=== PATIENT | male | born 1965 | race Caucasian/White ===

== ENCOUNTER 2022-03-10 12:42 | Emergency (ER) | payer SELFPAY ==
--- NOTE | 2022-03-10 13:12 | RAD REPORT ---
EXAM DESCRIPTION: CT - Ct Stroke Brain Wo Cont - 03/10/2022 1:06 pm CLINICAL HISTORY: Neuro deficit, acute, stroke suspected Headache, drowsiness, CVA symptomology COMPARISON: No comparisons TECHNIQUE: All CT scans are performed using dose optimization technique as appropriate and may inclu de automated exposure control or mA/KV adjustment according to patient size. FINDINGS: No intracranial hemorrhage, hydrocephalus or extra-axial fluid collection.No areas of brai n edema or evidence of midline shift. The paranasal sinuses and mastoids are clear. The calvarium is intact. IMPRESSION: No acute intracranial abnormality. The findings were discussed with Francis Martin in the ER on 03/10/2022 at 1:08 p.m. by telephone.
[2022-03-10] MEDS ORDERED: TENECTEPLASE 50 MG/10 ML VIAL IV ONE (13:15)
[2022-03-10 13:17] LABS: Hematocrit 39.2 % (39.6-49.0); Lymphocytes % 24.6 % (15.3-44.8); MPV 7.5 fL (7.6-11.3); RBC Red Blood Cell Count 4.12 M/uL (4.33-5.43)
[2022-03-10 13:21] LABS: Protime INR 0.95
--- NOTE | 2022-03-10 13:48 | RAD REPORT ---
EXAM DESCRIPTION: RAD - Chest Single View - 03/10/2022 1:33 pm CLINICAL HISTORY: weakness COMPARISON: None TECHNIQUE: AP portable chest image was obtained 03/10/2022 1:33 pm . FINDINGS: Lungs are clear. Heart and vasculature are normal. No measurable pleural effusion and no p neumothorax. No acute bony abnormality seen. No acute aortic findings suspected. IMPRESSION: No acute cardiopulmonary process.
[2022-03-10 13:58] LABS: Bilirubin Direct 0.2 mg/dL (0-0.2); Bilirubin Total 0.9 mg/dL (0.2-1.0); CKMB Creatine Kinase MB 2.8 ng/mL (1.0-3.6); Magnesium 1.7 mg/dL (1.8-2.4); Potassium 3.3 mmol/L (3.5-5.1); Protein, Total 7.4 g/dL (6.4-8.2)
--- NOTE | 2022-03-10 14:10 | RAD REPORT ---
EXAM DESCRIPTION: CT - Head angio - 03/10/2022 2:00 pm CLINICAL HISTORY: Neuro deficit, acute, stroke suspected Headache, drowsiness, CVA symptomology COMPARISON: Ct Stroke Brain Wo Cont dated 03/10/2022 TECHNIQUE: CT angiography of the head was performed with MIPs. All CT scans are performed using dose optimization technique as appropriate and may include automated exposure control or mA/KV adjustment according to patient size. FINDINGS: No evidence of aneurysm is detected. No flow-limiting stenosis or vascular malformation id entified. Antegrade flow is seen in the vertebral arteries. The vertebral arteries are codominant. The visualized dural venous sinuses are patent. IMPRESSION: No significant flow abnormality is detected.
--- NOTE | 2022-03-10 14:12 | RAD REPORT ---
EXAM DESCRIPTION: CT - Neck Angio - 03/10/2022 2:00 pm CLINICAL HISTORY: Neuro deficit, acute, stroke suspected Headache, drowsiness, CVA symptomology COMPARISON: No comparisons TECHNIQUE: CT angiography of the neck vessels was performed with MIPs. All CT scans are performed using dose optimization technique as appropriate and may include automated exposure control or mA/KV adjustment according to patient size. FINDINGS: A left aortic arch is identified with normal three vessel configuration of the great vesse ls. Mild hard plaque is seen in both common carotid arteries. There is a moderate to large mixed plaque present left carotid bulb. This results in an 80-90% stenos is based on NASCET criteria. Focal hard plaque is seen right carotid bulb. This results in less than 50% stenosis on the right. Normal flow is seen within both vertebral arteries. IMPRESSION: 80-90% stenosis of the left carotid bulb is present caused by mixed plaque.
--- NOTE | 2022-03-10 15:03 | ER ---
Nurse's Notes [facility] Name: Francis Nguyen Age: 56 yrs Sex: Male : 1965 Arrival Date: 03/10/2022 Time: 12:43 Bed 8 Private MD: Diagnosis: Cerebral infarction, unspecified Presentation: 03/10 13:01 Chief complaint: Patient states: Passed out a couple times at work 30 min [employer]. Slight ll1 facial droop, L arm drift. Code stroke called. Coronavirus screen: Client denies travel out of the [place] in the last 14 days. At this time, the client does not indicate any symptoms associated with coronavirus-19. Ebola Screen: Patient denies travel to an Ebola-affected area in the 21 days before illness onset. Initial Sepsis Screen: Does the patient meet any 2 criteria? No. Patient's initial sepsis screen is negative. Does the patient have a suspected source of infection? No. Patient's initial sepsis screen is negative. Risk Assessment: Do you want to hurt yourself or someone else? Patient reports no desire to harm self or others. Onset of symptoms was March 10, 2022. 13:01 Method Of Arrival: Wheelchair ll1 13:01 Acuity: DONNA 2 ll1 Triage Assessment: 13:04 General: Appears uncomfortable, Behavior is cooperative, appropriate for age. Pain: ll1 Denies pain. Neuro: Reports a syncopal episode weakness. Cardiovascular: No deficits noted. Respiratory: No deficits noted. Derm: No deficits noted. Historical: - Allergies: 13:03 No Known Allergies; ll1 - Home Meds: 13:03 None [Active]; ll1 - PMHx: 13:03 None; ll1 - PSHx: 13:03 Unable to Obtain; ll1 - Immunization history:: Adult Immunizations up to date. - Social history:: Smoking status: Patient reports use of chewing tobacco. Screenin:04 Abuse screen: Denies threats or abuse. Nutritional screening: No deficits noted. ll1 Tuberculosis screening: No symptoms or risk factors identified. Fall Risk Fall in past 12 months (25 points). Secondary diagnosis (15 points) syncope. IV access (20 points). Ambulatory Aid- Crutches/Cane/Walker (15 pts). Gait- Impaired (20 pts.). Total Leon Fall Scale indicates High Risk Score (45 or more points). Fall prevention measures have been instituted. Side Rails Up X 2 Placed Close to Nursing Station Frequent Obs/Assessments Occuring Family Present and informed to notify staff if the need to leave the bedside As available patient and family educated on Fall Prevention Program and Strategies. 13:15 The patient has not been NPO before screening. The patient is alert, able to follow ll1 commands. The patient does not exhibit slurred or garbled speech The patient is not exhibiting difficulty speaking. The patient does not exhibit difficulty understanding words. The patient is able to swallow own secretions with no drooling or need for suction. Patient tolerated one teaspoon of water. No drooling, immediate coughing, gurgling, or clearing of the throat was noted. The patient tolerated 90mL of water. No drooling, immediate coughing, gurgling, or clearing of the throat was noted. The patient passed the bedside swallow screening. Oral medications may be given as ordered. Contact Physician for further diet orders. Provider notified of bedside swallow screening results: Francis DE SANTIAGO. Assessment: 13:15 General: Appears in no apparent distress. Behavior is calm, cooperative, appropriate ll1 for age. Pain: Denies pain. Neuro: Reports a syncopal episode weakness. Cardiovascular: No deficits noted. Respiratory: No deficits noted. Musculoskeletal: Circulation, motion, and sensation intact. Capillary refill < 3 seconds. 14:00 Reassessment: No changes from previously documented assessment. back from CT. ll1 15:00 Reassessment: No changes from previously documented assessment. Patient and/or family ll1 updated on plan of care and expected duration. Pain level reassessed. Patient is alert, oriented x 3, equal unlabored respirations, skin warm/dry/pink. 16:00 Reassessment: No changes from previously documented assessment. Patient and/or family ll1 updated on plan of care and expected duration. Pain level reassessed. Patient is alert, oriented x 3, equal unlabored respirations, skin warm/dry/pink. 16:39 Reassessment: No changes from previously documented assessment. Patient and/or family ll1 updated on plan of care and expected duration. Pain level reassessed. Patient is alert, oriented x 3, equal unlabored respirations, skin warm/dry/pink. Vital Signs: 13:01 BP 176 / 93; Pulse 83; Resp 17; Temp 98.5; Pulse Ox 99% on R/A; ll1 13:12 Weight 84 kg; ll1 13:18 BP 155 / 94; Pulse 78; Resp 16; Pulse Ox 100% ; ll1 13:30 BP 168 / 88; Pulse 72; Resp 16; Pulse Ox 99% on R/A; ll1 13:45 BP 160 / 90; Pulse 64; Resp 16; Pulse Ox 100% on R/A; ll1 14:15 BP 161 / 90; Pulse 84; Resp 16; Pulse Ox 99% ; ll1 14:30 BP 169 / 94; Pulse 72; Resp 17; Pulse Ox 100% ; ll1 14:45 BP 184 / 96; Pulse 70; Resp 16; Pulse Ox 100% on R/A; ll1 15:00 BP 180 / 96; Pulse 67; Resp 16; Pulse Ox 100% ; ll1 15:15 BP 176 / 90; Pulse 63; Resp 16; Pulse Ox 100% on R/A; ll1 15:30 BP 135 / 82; Pulse 66; Resp 16; Temp 98.1; Pulse Ox 99% ; ll1 16:00 BP 165 / 94; Pulse 66; Resp 16; Pulse Ox 99% ; ll1 16:30 BP 165 / 81; Pulse 66; Resp 16; Pulse Ox 99% ; ll1 NIH Stroke Scale Scores: 12:55 NIHSS Score: 6 [facility] 13:15 NIHSS Score: 2 ll1 13:30 NIHSS Score: 2 ll1 13:45 NIHSS Score: 2 ll1 14:00 NIHSS Score: 2 ll1 14:15 NIHSS Score: 1 ll1 14:30 NIHSS Score: 1 ll1 14:45 NIHSS Score: 1 ll1 15:00 NIHSS Score: 1 ll1 15:15 NIHSS Score: 1 ll1 15:30 NIHSS Score: 1 ll1 16:00 NIHSS Score: 1 ll1 16:30 NIHSS Score: 1 ll1 ED Course: 12:43 Patient arrived in ED. mr 12:50 Francis Martin PA is PHCP. jmm 12:50 Girish Begum MD is Attending Physician. jmm 12:53 Yael Duran RN is Primary Nurse. ll1 13:01 Inserted saline lock: 18 gauge in right antecubital area, using aseptic technique. ll1 Blood collected. 13:03 Triage completed. 1 13:04 Arm band placed on Patient placed in an exam room, on a stretcher. ll1 13:05 Patient has correct armband on for positive identification. Bed in low position. Call ll1 light in reach. Side rails up X2. Client placed on continuous cardiac and pulse oximetry monitoring. NIBP monitoring applied. 13:07 CT Stroke Brain w/o Contrast In Process Unspecified. EDMS 13:35 Stroke CXR 1 View In Process Unspecified. EDMS 14:02 CT Head Angio In Process Unspecified. EDMS 14:02 CT Neck Angio In Process Unspecified. EDMS 14:40 initiated transfer to [facility]. bd 15:40 pt accepted in transfer to [facility] by Dr Mccloud,admin approval given by cezar Humphries. 15:58 UDS Sent. 5 16:13 Warm blanket given. environmental monitoring technician on. Pulse ox on. NIBP on. 5 16:29 No provider procedures requiring assistance completed. Patient transferred, IV remains ll1 in place. Administered Medications: 13:21 Drug: TNK FOR STROKE - Tenecteplase 0.25 mg/kg {Co-Signature: 1 (Yael hernández RN).} Route: IV; Rate: per protocol; Site: right antecubital; 16:00 Follow up: Response: No adverse reaction; IV Status: Completed infusion; IV Intake: 9ml [facility] 14:16 Drug: NS 0.9% 1000 ml Route: IV; Rate: 1 bolus; Site: right antecubital; [facility] 15:06 Follow up: Response: No adverse reaction; IV Status: Completed infusion; IV Intake: ll1 1000ml 15:05 Drug: foLIC Acid 1 mg Route: IVPB; Site: right antecubital; [facility] 15:34 Follow up: Response: No adverse reaction; IV Status: Completed infusion; IV Intake: ll1 0.2ml 15:45 Not Given (Other Intervention Used): Alteplase (Bolus for Stroke) - Activase 0.09 mg/kg jl7 IV Thrombolytics once over 1 mins; Max Bolus dose 9 mg. Medication: 15:11 VIS not applicable for this client. 1 Intake: 15:06 IV: 1000ml; Total: 1000ml. ll1 15:34 IV: 0ml; Total: 1000ml. ll1 16:00 IV: 9ml; Total: 1009ml. jl7 Outcome: 15:03 ER care complete, transfer ordered by . [facility] 16:29 Transferred by ground EMS Transfer form completed. Note: [facility]. Report given ll1 to Maggie by HARDEEP Waterman. 16:29 Condition: stable 16:29 Instructed on the need for transfer. 16:45 Condition: Out of ED with EMS ll1 16:57 Patient left the ED. ll1 NIH Stroke Scale - NIH Stroke Score Date: 03/10/2022 Time: 12:55 Total Score = 6 1a. Level of Consciousness (LOC) - 0(Alert) 1b. Level of Consciousness (LOC) (Month \T\ Age) - 0(Both) 1c. LOC Commands (Open \T\ Closes Eyes/Honey Producer) - 0(Both) 2. Best Gaze (Lateral Gaze Paresis) - 0(Normal) 3. Visual Field Loss - 0(No visual loss) 4. Facial Palsy - 1(Minor Paralysis) 5a. Left Arm: Motor (10-second hold) - 2(Drift, some effort against gravity) 5b. Right Arm: Motor (10-second hold) - 0(No drift) 6a. Left Leg: Motor (5-second hold - always test supine) - 2(Drift, some effort against gravity) 6b. Right Leg: Motor (5-second hold - always test supine) - 0(No drift) 7. Limb Ataxia (finger/nose \T\ heel/hunt - test with eyes open) - 0(Absent) 8. Sensory Loss (pinprick arms/legs/face) - 0(Normal) 9. Best Language: Aphasia (description/naming/reading) - 0(No aphasia) 10. Dysarthria (speech clarity - read or repeat words) - 1(Mild to Moderate) 11. Extinction and Inattention (visual/tactile/auditory/spatial/personal) - 0(No abnormality) Initials: jodi NIH Stroke Scale - NIH Stroke Score Date: 03/10/2022 Time: 13:15 Total Score = 2 1a. Level of Consciousness (LOC) - 0(Alert) 1b. Level of Consciousness (LOC) (Month \T\ Age) - 0(Both) 1c. LOC Commands (Open \T\ Closes Eyes/Honey Producer) - 0(Both) 2. Best Gaze (Lateral Gaze Paresis) - 0(Normal) 3. Visual Field Loss - 0(No visual loss) 4. Facial Palsy - 1(Minor Paralysis) 5a. Left Arm: Motor (10-second hold) - 1(Drift) 5b. Right Arm: Motor (10-second hold) - 0(No drift) 6a. Left Leg: Motor (5-second hold - always test supine) - 0(No drift) 6b. Right Leg: Motor (5-second hold - always test supine) - 0(No drift) 7. Limb Ataxia (finger/nose \T\ heel/hunt - test with eyes open) - 0(Absent) 8. Sensory Loss (pinprick arms/legs/face) - 0(Normal) 9. Best Language: Aphasia (description/naming/reading) - 0(No aphasia) 10. Dysarthria (speech clarity - read or repeat words) - 0(Normal) 11. Extinction and Inattention (visual/tactile/auditory/spatial/personal) - 0(No abnormality) Initials: ll1 NIH Stroke Scale - NIH Stroke Score Date: 03/10/2022 Time: 13:30 Total Score = 2 1a. Level of Consciousness (LOC) - 0(Alert) 1b. Level of Consciousness (LOC) (Month \T\ Age) - 0(Both) 1c. LOC Commands (Open \T\ Closes Eyes/Honey Producer) - 0(Both) 2. Best Gaze (Lateral Gaze Paresis) - 0(Normal) 3. Visual Field Loss - 0(No visual loss) 4. Facial Palsy - 1(Minor Paralysis) 5a. Left Arm: Motor (10-second hold) - 1(Drift) 5b. Right Arm: Motor (10-second hold) - 0(No drift) 6a. Left Leg: Motor (5-second hold - always test supine) - 0(No drift) 6b. Right Leg: Motor (5-second hold - always test supine) - 0(No drift) 7. Limb Ataxia (finger/nose \T\ heel/hunt - test with eyes open) - 0(Absent) 8. Sensory Loss (pinprick arms/legs/face) - 0(Normal) 9. Best Language: Aphasia (description/naming/reading) - 0(No aphasia) 10. Dysarthria (speech clarity - read or repeat words) - 0(Normal) 11. Extinction and Inattention (visual/tactile/auditory/spatial/personal) - 0(No abnormality) Initials: ll1 NIH Stroke Scale - NIH Stroke Score Date: 03/10/2022 Time: 13:45 Total Score = 2 1a. Level of Consciousness (LOC) - 0(Alert) 1b. Level of Consciousness (LOC) (Month \T\ Age) - 0(Both) 1c. LOC Commands (Open \T\ Closes Eyes/Honey Producer) - 0(Both) 2. Best Gaze (Lateral Gaze Paresis) - 0(Normal) 3. Visual Field Loss - 0(No visual loss) 4. Facial Palsy - 1(Minor Paralysis) 5a. Left Arm: Motor (10-second hold) - 1(Drift) 5b. Right Arm: Motor (10-second hold) - 0(No drift) 6a. Left Leg: Motor (5-second hold - always test supine) - 0(No drift) 6b. Right Leg: Motor (5-second hold - always test supine) - 0(No drift) 7. Limb Ataxia (finger/nose \T\ heel/hunt - test with eyes open) - 0(Absent) 8. Sensory Loss (pinprick arms/legs/face) - 0(Normal) 9. Best Language: Aphasia (description/naming/reading) - 0(No aphasia) 10. Dysarthria (speech clarity - read or repeat words) - 0(Normal) 11. Extinction and Inattention (visual/tactile/auditory/spatial/personal) - 0(No abnormality) Initials: ll1 NIH Stroke Scale - NIH Stroke Score Date: 03/10/2022 Time: 14:00 Total Score = 2 1a. Level of Consciousness (LOC) - 0(Alert) 1b. Level of Consciousness (LOC) (Month \T\ Age) - 0(Both) 1c. LOC Commands (Open \T\ Closes Eyes/Honey Producer) - 0(Both) 2. Best Gaze (Lateral Gaze Paresis) - 0(Normal) 3. Visual Field Loss - 0(No visual loss) 4. Facial Palsy - 1(Minor Paralysis) 5a. Left Arm: Motor (10-second hold) - 1(Drift) 5b. Right Arm: Motor (10-second hold) - 0(No drift) 6a. Left Leg: Motor (5-second hold - always test supine) - 0(No drift) 6b. Right Leg: Motor (5-second hold - always test supine) - 0(No drift) 7. Limb Ataxia (finger/nose \T\ heel/hunt - test with eyes open) - 0(Absent) 8. Sensory Loss (pinprick arms/legs/face) - 0(Normal) 9. Best Language: Aphasia (description/naming/reading) - 0(No aphasia) 10. Dysarthria (speech clarity - read or repeat words) - 0(Normal) 11. Extinction and Inattention (visual/tactile/auditory/spatial/personal) - 0(No abnormality) Initials: [facility] NIH Stroke Scale - NIH Stroke Score Date: 03/10/2022 Time: 14:15 Total Score = 1 1a. Level of Consciousness (LOC) - 0(Alert) 1b. Level of Consciousness (LOC) (Month \T\ Age) - 0(Both) 1c. LOC Commands (Open \T\ Closes Eyes/Honey Producer) - 0(Both) 2. Best Gaze (Lateral Gaze Paresis) - 0(Normal) 3. Visual Field Loss - 0(No visual loss) 4. Facial Palsy - 1(Minor Paralysis) 5a. Left Arm: Motor (10-second hold) - 0(No drift) 5b. Right Arm: Motor (10-second hold) - 0(No drift) 6a. Left Leg: Motor (5-second hold - always test supine) - 0(No drift) 6b. Right Leg: Motor (5-second hold - always test supine) - 0(No drift) 7. Limb Ataxia (finger/nose \T\ heel/hunt - test with eyes open) - 0(Absent) 8. Sensory Loss (pinprick arms/legs/face) - 0(Normal) 9. Best Language: Aphasia (description/naming/reading) - 0(No aphasia) 10. Dysarthria (speech clarity - read or repeat words) - 0(Normal) 11. Extinction and Inattention (visual/tactile/auditory/spatial/personal) - 0(No abnormality) Initials: [facility] NIH Stroke Scale - NIH Stroke Score Date: 03/10/2022 Time: 14:30 Total Score = 1 1a. Level of Consciousness (LOC) - 0(Alert) 1b. Level of Consciousness (LOC) (Month \T\ Age) - 0(Both) 1c. LOC Commands (Open \T\ Closes Eyes/Honey Producer) - 0(Both) 2. Best Gaze (Lateral Gaze Paresis) - 0(Normal) 3. Visual Field Loss - 0(No visual loss) 4. Facial Palsy - 1(Minor Paralysis) 5a. Left Arm: Motor (10-second hold) - 0(No drift) 5b. Right Arm: Motor (10-second hold) - 0(No drift) 6a. Left Leg: Motor (5-second hold - always test supine) - 0(No drift) 6b. Right Leg: Motor (5-second hold - always test supine) - 0(No drift) 7. Limb Ataxia (finger/nose \T\ heel/hunt - test with eyes open) - 0(Absent) 8. Sensory Loss (pinprick arms/legs/face) - 0(Normal) 9. Best Language: Aphasia (description/naming/reading) - 0(No aphasia) 10. Dysarthria (speech clarity - read or repeat words) - 0(Normal) 11. Extinction and Inattention (visual/tactile/auditory/spatial/personal) - 0(No abnormality) Initials: ll1 NIH Stroke Scale - NIH Stroke Score Date: 03/10/2022 Time: 14:45 Total Score = 1 1a. Level of Consciousness (LOC) - 0(Alert) 1b. Level of Consciousness (LOC) (Month \T\ Age) - 0(Both) 1c. LOC Commands (Open \T\ Closes Eyes/Honey Producer) - 0(Both) 2. Best Gaze (Lateral Gaze Paresis) - 0(Normal) 3. Visual Field Loss - 0(No visual loss) 4. Facial Palsy - 1(Minor Paralysis) 5a. Left Arm: Motor (10-second hold) - 0(No drift) 5b. Right Arm: Motor (10-second hold) - 0(No drift) 6a. Left Leg: Motor (5-second hold - always test supine) - 0(No drift) 6b. Right Leg: Motor (5-second hold - always test supine) - 0(No drift) 7. Limb Ataxia (finger/nose \T\ heel/hunt - test with eyes open) - 0(Absent) 8. Sensory Loss (pinprick arms/legs/face) - 0(Normal) 9. Best Language: Aphasia (description/naming/reading) - 0(No aphasia) 10. Dysarthria (speech clarity - read or repeat words) - 0(Normal) 11. Extinction and Inattention (visual/tactile/auditory/spatial/personal) - 0(No abnormality) Initials: ll1 NIH Stroke Scale - NIH Stroke Score Date: 03/10/2022 Time: 15:00 Total Score = 1 1a. Level of Consciousness (LOC) - 0(Alert) 1b. Level of Consciousness (LOC) (Month \T\ Age) - 0(Both) 1c. LOC Commands (Open \T\ Closes Eyes/Honey Producer) - 0(Both) 2. Best Gaze (Lateral Gaze Paresis) - 0(Normal) 3. Visual Field Loss - 0(No visual loss) 4. Facial Palsy - 1(Minor Paralysis) 5a. Left Arm: Motor (10-second hold) - 0(No drift) 5b. Right Arm: Motor (10-second hold) - 0(No drift) 6a. Left Leg: Motor (5-second hold - always test supine) - 0(No drift) 6b. Right Leg: Motor (5-second hold - always test supine) - 0(No drift) 7. Limb Ataxia (finger/nose \T\ heel/hunt - test with eyes open) - 0(Absent) 8. Sensory Loss (pinprick arms/legs/face) - 0(Normal) 9. Best Language: Aphasia (description/naming/reading) - 0(No aphasia) 10. Dysarthria (speech clarity - read or repeat words) - 0(Normal) 11. Extinction and Inattention (visual/tactile/auditory/spatial/personal) - 0(No abnormality) Initials: 1 NIH Stroke Scale - NIH Stroke Score Date: 03/10/2022 Time: 15:15 Total Score = 1 1a. Level of Consciousness (LOC) - 0(Alert) 1b. Level of Consciousness (LOC) (Month \T\ Age) - 0(Both) 1c. LOC Commands (Open \T\ Closes Eyes/Honey Producer) - 0(Both) 2. Best Gaze (Lateral Gaze Paresis) - 0(Normal) 3. Visual Field Loss - 0(No visual loss) 4. Facial Palsy - 1(Minor Paralysis) 5a. Left Arm: Motor (10-second hold) - 0(No drift) 5b. Right Arm: Motor (10-second hold) - 0(No drift) 6a. Left Leg: Motor (5-second hold - always test supine) - 0(No drift) 6b. Right Leg: Motor (5-second hold - always test supine) - 0(No drift) 7. Limb Ataxia (finger/nose \T\ heel/hunt - test with eyes open) - 0(Absent) 8. Sensory Loss (pinprick arms/legs/face) - 0(Normal) 9. Best Language: Aphasia (description/naming/reading) - 0(No aphasia) 10. Dysarthria (speech clarity - read or repeat words) - 0(Normal) 11. Extinction and Inattention (visual/tactile/auditory/spatial/personal) - 0(No abnormality) Initials: ll1 NIH Stroke Scale - NIH Stroke Score Date: 03/10/2022 Time: 15:30 Total Score = 1 1a. Level of Consciousness (LOC) - 0(Alert) 1b. Level of Consciousness (LOC) (Month \T\ Age) - 0(Both) 1c. LOC Commands (Open \T\ Closes Eyes/Honey Producer) - 0(Both) 2. Best Gaze (Lateral Gaze Paresis) - 0(Normal) 3. Visual Field Loss - 0(No visual loss) 4. Facial Palsy - 1(Minor Paralysis) 5a. Left Arm: Motor (10-second hold) - 0(No drift) 5b. Right Arm: Motor (10-second hold) - 0(No drift) 6a. Left Leg: Motor (5-second hold - always test supine) - 0(No drift) 6b. Right Leg: Motor (5-second hold - always test supine) - 0(No drift) 7. Limb Ataxia (finger/nose \T\ heel/hunt - test with eyes open) - 0(Absent) 8. Sensory Loss (pinprick arms/legs/face) - 0(Normal) 9. Best Language: Aphasia (description/naming/reading) - 0(No aphasia) 10. Dysarthria (speech clarity - read or repeat words) - 0(Normal) 11. Extinction and Inattention (visual/tactile/auditory/spatial/personal) - 0(No abnormality) Initials: ll1 NIH Stroke Scale - NIH Stroke Score Date: 03/10/2022 Time: 16:00 Total Score = 1 1a. Level of Consciousness (LOC) - 0(Alert) 1b. Level of Consciousness (LOC) (Month \T\ Age) - 0(Both) 1c. LOC Commands (Open \T\ Closes Eyes/Honey Producer) - 0(Both) 2. Best Gaze (Lateral Gaze Paresis) - 0(Normal) 3. Visual Field Loss - 0(No visual loss) 4. Facial Palsy - 1(Minor Paralysis) 5a. Left Arm: Motor (10-second hold) - 0(No drift) 5b. Right Arm: Motor (10-second hold) - 0(No drift) 6a. Left Leg: Motor (5-second hold - always test supine) - 0(No drift) 6b. Right Leg: Motor (5-second hold - always test supine) - 0(No drift) 7. Limb Ataxia (finger/nose \T\ heel/hunt - test with eyes open) - 0(Absent) 8. Sensory Loss (pinprick arms/legs/face) - 0(Normal) 9. Best Language: Aphasia (description/naming/reading) - 0(No aphasia) 10. Dysarthria (speech clarity - read or repeat words) - 0(Normal) 11. Extinction and Inattention (visual/tactile/auditory/spatial/personal) - 0(No abnormality) Initials: ll1 NIH Stroke Scale - NIH Stroke Score Date: 03/10/2022 Time: 16:30 Total Score = 1 1a. Level of Consciousness (LOC) - 0(Alert) 1b. Level of Consciousness (LOC) (Month \T\ Age) - 0(Both) 1c. LOC Commands (Open \T\ Closes Eyes/Honey Producer) - 0(Both) 2. Best Gaze (Lateral Gaze Paresis) - 0(Normal) 3. Visual Field Loss - 0(No visual loss) 4. Facial Palsy - 1(Minor Paralysis) 5a. Left Arm: Motor (10-second hold) - 0(No drift) 5b. Right Arm: Motor (10-second hold) - 0(No drift) 6a. Left Leg: Motor (5-second hold - always test supine) - 0(No drift) 6b. Right Leg: Motor (5-second hold - always test supine) - 0(No drift) 7. Limb Ataxia (finger/nose \T\ heel/hunt - test with eyes open) - 0(Absent) 8. Sensory Loss (pinprick arms/legs/face) - 0(Normal) 9. Best Language: Aphasia (description/naming/reading) - 0(No aphasia) 10. Dysarthria (speech clarity - read or repeat words) - 0(Normal) 11. Extinction and Inattention (visual/tactile/auditory/spatial/personal) - 0(No abnormality) Initials: [facility] Signatures: Dispatcher [employer] EDMS Alena Zeng Joel, PA PA kj Kin, Ely Watkins, Najma 5 Guevara Eagle, HARDEEP RN jl7 Yael Duran RN RN ll Yael Duran RN [facility] Corrections: (The following items were deleted from the chart) 14:00 13:30 The patient has not been NPO before screening. The patient is alert, able [facility] to follow commands. The patient does not exhibit slurred or garbled speech The patient is not exhibiting difficulty speaking. The patient does not exhibit difficulty understanding words. The patient is able to swallow own secretions with no drooling or need for suction. Patient tolerated one teaspoon of water. No drooling, immediate coughing, gurgling, or clearing of the throat was noted. The patient tolerated 90mL of water. No drooling, immediate coughing, gurgling, or clearing of the throat was noted. The patient passed the bedside swallow screening. Oral medications may be given as ordered. Contact Physician for further diet orders. Provider notified of bedside swallow screening results: Francis DE SANTIAGO [facility] 15:40 15:30 BP 135 / 82; Pulse 66bpm; Pulse Ox 99%; [place] [id number] 15:45 13:21 Alteplase (Bolus for Stroke) - Activase 0.09 mg/kg IV Thrombolytics over jl7 1 mins [facility] 15:45 15:06 Response: No adverse reaction [facility]
--- NOTE | 2022-03-10 15:03 | EDPHYS ---
Physician Documentation [facility] Name: Francis Nguyen Age: 56 yrs Sex: Male : 1965 Arrival Date: 03/10/2022 Time: 12:43 Bed 8 Private MD: ED Physician Girish Begum HPI: 03/10 12:50 This 56 yrs old Male presents to ER via Wheelchair with complaints of Heat Exposure, jmm Passed Out Prior To Arrival, Dizziness, Facial Droop. 12:50 The patient's problem is reported as a facial droop, on left, syncope, syncope. Onset: jm The symptoms/episode began/occurred acutely, .5 hour(s) ago. Duration: This was a single incident. 12:50 The symptoms are alleviated by nothing. The symptoms are aggravated by nothing. This is jmm a 56-year-old male with no chronic medical conditions and presents emerged department with complaints of a syncopal episode. Patient also developed left-sided weakness. Patient denies chest pain, vomiting, shortness of breath. . Historical: - Allergies: 13:03 No Known Allergies; ll1 - Home Meds: 13:03 None [Active]; ll1 - PMHx: 13:03 None; ll1 - PSHx: 13:03 Unable to Obtain; ll1 - Immunization history:: Adult Immunizations up to date. - Social history:: Smoking status: Patient reports use of chewing tobacco. ROS: 12:50 Constitutional: Negative for fever, chills, and weight loss, Cardiovascular: Negative [facility] for chest pain, palpitations, and edema, Respiratory: Negative for shortness of breath, cough, wheezing, and pleuritic chest pain. 12:50 Neuro: Positive for syncope, weakness. 12:50 All other systems are negative. Exam: 13:32 Radiologist reports: negative jm 13:32 Constitutional: This is a well developed, well nourished patient who is awake, alert, and in no acute distress. Vital Signs: 13:01 BP 176 / 93; Pulse 83; Resp 17; Temp 98.5; Pulse Ox 99% on R/A; ll1 13:12 Weight 84 kg; ll1 13:18 BP 155 / 94; Pulse 78; Resp 16; Pulse Ox 100% ; ll1 13:30 BP 168 / 88; Pulse 72; Resp 16; Pulse Ox 99% on R/A; ll1 13:45 BP 160 / 90; Pulse 64; Resp 16; Pulse Ox 100% on R/A; ll1 14:15 BP 161 / 90; Pulse 84; Resp 16; Pulse Ox 99% ; ll1 14:30 BP 169 / 94; Pulse 72; Resp 17; Pulse Ox 100% ; ll1 14:45 BP 184 / 96; Pulse 70; Resp 16; Pulse Ox 100% on R/A; ll1 15:00 BP 180 / 96; Pulse 67; Resp 16; Pulse Ox 100% ; ll1 15:15 BP 176 / 90; Pulse 63; Resp 16; Pulse Ox 100% on R/A; ll1 15:30 BP 135 / 82; Pulse 66; Resp 16; Temp 98.1; Pulse Ox 99% ; ll1 16:00 BP 165 / 94; Pulse 66; Resp 16; Pulse Ox 99% ; ll1 16:30 BP 165 / 81; Pulse 66; Resp 16; Pulse Ox 99% ; ll1 NIH Stroke Scale Scores: 12:55 NIHSS Score: 6 [facility] 13:15 NIHSS Score: 2 ll1 13:30 NIHSS Score: 2 ll1 13:45 NIHSS Score: 2 ll1 14:00 NIHSS Score: 2 ll1 14:15 NIHSS Score: 1 ll1 14:30 NIHSS Score: 1 ll1 14:45 NIHSS Score: 1 ll1 15:00 NIHSS Score: 1 ll1 15:15 NIHSS Score: 1 ll1 15:30 NIHSS Score: 1 ll1 16:00 NIHSS Score: 1 ll1 16:30 NIHSS Score: 1 ll1 MDM: 12:50 Patient medically screened. nivia 14:57 Data reviewed: vital signs, nurses notes. Counseling: I had a detailed discussion with [facility] the patient and/or guardian regarding: the historical points, exam findings, and any diagnostic results supporting the discharge/admit diagnosis, lab results, radiology results, the need to transfer to another facility. ED course: I discussed the patient's case with whom recommended administration of alteplase. Patient did improve from an NIH of 6 to 3. 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 I discussed the patient with Neurology at [facility] whom accepted the patient for transfer. . 03/10 13:02 Order name: Basic Metabolic Panel; Complete Time: 14:00 [facility] 03/10 13:02 Order name: CBC with Diff; Complete Time: 13:24 [facility] 03/10 13:02 Order name: CPK; Complete Time: 14:00 [facility] 03/10 13:02 Order name: Ckmb; Complete Time: 14:00 [facility] 03/10 13:02 Order name: Hepatic Function; Complete Time: 14:00 [facility] 03/10 13:02 Order name: Lipase; Complete Time: 14:00 [facility] 03/10 13:02 Order name: Magnesium; Complete Time: 14:00 [facility] 03/10 13:02 Order name: Protime (+inr); Complete Time: 13:22 [facility] 03/10 13:02 Order name: Ptt, Activated; Complete Time: 13:22 [facility] 03/10 13:02 Order name: UDS; Complete Time: 16:34 [facility] 03/10 13:02 Order name: CT Stroke Brain w/o Contrast; Complete Time: 13:14 [facility] 03/10 13:02 Order name: Stroke CXR 1 View; Complete Time: 13:50 [facility] 03/10 13:38 Order name: SARS-COV-2 RT PCR (Document "Date of Onset" if Symptomatic); Complete Time: [facility] 15:11 03/10 16:07 Order name: Urine Dipstick-Ancillary; Complete Time: 16:22 [facility] 03/10 13:02 Order name: EKG; Complete Time: 13:03 [facility] 03/10 13:02 Order name: Cardiac monitoring; Complete Time: 13:25 [facility] 03/10 13:02 Order name: EKG - Nurse/Tech; Complete Time: 13:25 [facility] 03/10 13:02 Order name: IV Saline Lock; Complete Time: 13:06 [facility] 03/10 13:02 Order name: Labs collected and sent; Complete Time: 13:06 [facility] 03/10 13:02 Order name: NPO; Complete Time: 13:25 [facility] 03/10 13:02 Order name: O2 Per Protocol; Complete Time: 13:05 [facility] 03/10 13:02 Order name: O2 Sat Monitoring; Complete Time: 13:05 [facility] 03/10 13:02 Order name: Stroke Swallow Screen; Complete Time: 15:06 [facility] 03/10 13:34 Order name: CT Head Angio; Complete Time: 14:11 [facility] 03/10 13:34 Order name: CT Neck Angio; Complete Time: 14:14 [facility] Administered Medications: 13:21 Drug: TNK FOR STROKE - Tenecteplase 0.25 mg/kg {Co-Signature: ll1 (Yael hernández RN).} Route: IV; Rate: per protocol; Site: right antecubital; 16:00 Follow up: Response: No adverse reaction; IV Status: Completed infusion; IV Intake: 9ml jl7 14:16 Drug: NS 0.9% 1000 ml Route: IV; Rate: 1 bolus; Site: right antecubital; ll1 15:06 Follow up: Response: No adverse reaction; IV Status: Completed infusion; IV Intake: ll1 1000ml 15:05 Drug: foLIC Acid 1 mg Route: IVPB; Site: right antecubital; [facility] 15:34 Follow up: Response: No adverse reaction; IV Status: Completed infusion; IV Intake: ll1 0.2ml 15:45 Not Given (Other Intervention Used): Alteplase (Bolus for Stroke) - Activase 0.09 mg/kg [facility] IV Thrombolytics once over 1 mins; Max Bolus dose 9 mg. Disposition Summary: 03/10/22 15:03 Transfer Ordered Transfer Location: [facility] Reason: Higher level of care [facility] Condition: Stable [facility] Problem: new [facility] Symptoms: are unchanged [facility] Accepting Physician: Neurology(03/10/22 16:57) ll1 Diagnosis - Cerebral infarction, unspecified [facility] Forms: - Medication Reconciliation Form [facility] - SBAR form [facility] NIH Stroke Scale - NIH Stroke Score Date: 03/10/2022 Time: 12:55 Total Score = 6 1a. Level of Consciousness (LOC) - 0(Alert) 1b. Level of Consciousness (LOC) (Month \\T\\ Age) - 0(Both) 1c. LOC Commands (Open \\T\\ Closes Eyes/Child Nutrition Director) - 0(Both) 2. Best Gaze (Lateral Gaze Paresis) - 0(Normal) 3. Visual Field Loss - 0(No visual loss) 4. Facial Palsy - 1(Minor Paralysis) 5a. Left Arm: Motor (10-second hold) - 2(Drift, some effort against gravity) 5b. Right Arm: Motor (10-second hold) - 0(No drift) 6a. Left Leg: Motor (5-second hold - always test supine) - 2(Drift, some effort against gravity) 6b. Right Leg: Motor (5-second hold - always test supine) - 0(No drift) 7. Limb Ataxia (finger/nose \\T\\ heel/hunt - test with eyes open) - 0(Absent) 8. Sensory Loss (pinprick arms/legs/face) - 0(Normal) 9. Best Language: Aphasia (description/naming/reading) - 0(No aphasia) 10. Dysarthria (speech clarity - read or repeat words) - 1(Mild to Moderate) 11. Extinction and Inattention (visual/tactile/auditory/spatial/personal) - 0(No abnormality) Initials: [facility] NIH Stroke Scale - NIH Stroke Score Date: 03/10/2022 Time: 13:15 Total Score = 2 1a. Level of Consciousness (LOC) - 0(Alert) 1b. Level of Consciousness (LOC) (Month \\T\\ Age) - 0(Both) 1c. LOC Commands (Open \\T\\ Closes Eyes/Child Nutrition Director) - 0(Both) 2. Best Gaze (Lateral Gaze Paresis) - 0(Normal) 3. Visual Field Loss - 0(No visual loss) 4. Facial Palsy - 1(Minor Paralysis) 5a. Left Arm: Motor (10-second hold) - 1(Drift) 5b. Right Arm: Motor (10-second hold) - 0(No drift) 6a. Left Leg: Motor (5-second hold - always test supine) - 0(No drift) 6b. Right Leg: Motor (5-second hold - always test supine) - 0(No drift) 7. Limb Ataxia (finger/nose \\T\\ heel/hunt - test with eyes open) - 0(Absent) 8. Sensory Loss (pinprick arms/legs/face) - 0(Normal) 9. Best Language: Aphasia (description/naming/reading) - 0(No aphasia) 10. Dysarthria (speech clarity - read or repeat words) - 0(Normal) 11. Extinction and Inattention (visual/tactile/auditory/spatial/personal) - 0(No abnormality) Initials: ll1 NIH Stroke Scale - NIH Stroke Score Date: 03/10/2022 Time: 13:30 Total Score = 2 1a. Level of Consciousness (LOC) - 0(Alert) 1b. Level of Consciousness (LOC) (Month \\T\\ Age) - 0(Both) 1c. LOC Commands (Open \\T\\ Closes Eyes/Child Nutrition Director) - 0(Both) 2. Best Gaze (Lateral Gaze Paresis) - 0(Normal) 3. Visual Field Loss - 0(No visual loss) 4. Facial Palsy - 1(Minor Paralysis) 5a. Left Arm: Motor (10-second hold) - 1(Drift) 5b. Right Arm: Motor (10-second hold) - 0(No drift) 6a. Left Leg: Motor (5-second hold - always test supine) - 0(No drift) 6b. Right Leg: Motor (5-second hold - always test supine) - 0(No drift) 7. Limb Ataxia (finger/nose \\T\\ heel/hunt - test with eyes open) - 0(Absent) 8. Sensory Loss (pinprick arms/legs/face) - 0(Normal) 9. Best Language: Aphasia (description/naming/reading) - 0(No aphasia) 10. Dysarthria (speech clarity - read or repeat words) - 0(Normal) 11. Extinction and Inattention (visual/tactile/auditory/spatial/personal) - 0(No abnormality) Initials: [facility] NIH Stroke Scale - NIH Stroke Score Date: 03/10/2022 Time: 13:45 Total Score = 2 1a. Level of Consciousness (LOC) - 0(Alert) 1b. Level of Consciousness (LOC) (Month \\T\\ Age) - 0(Both) 1c. LOC Commands (Open \\T\\ Closes Eyes/Child Nutrition Director) - 0(Both) 2. Best Gaze (Lateral Gaze Paresis) - 0(Normal) 3. Visual Field Loss - 0(No visual loss) 4. Facial Palsy - 1(Minor Paralysis) 5a. Left Arm: Motor (10-second hold) - 1(Drift) 5b. Right Arm: Motor (10-second hold) - 0(No drift) 6a. Left Leg: Motor (5-second hold - always test supine) - 0(No drift) 6b. Right Leg: Motor (5-second hold - always test supine) - 0(No drift) 7. Limb Ataxia (finger/nose \\T\\ heel/hunt - test with eyes open) - 0(Absent) 8. Sensory Loss (pinprick arms/legs/face) - 0(Normal) 9. Best Language: Aphasia (description/naming/reading) - 0(No aphasia) 10. Dysarthria (speech clarity - read or repeat words) - 0(Normal) 11. Extinction and Inattention (visual/tactile/auditory/spatial/personal) - 0(No abnormality) Initials: ll1 NIH Stroke Scale - NIH Stroke Score Date: 03/10/2022 Time: 14:00 Total Score = 2 1a. Level of Consciousness (LOC) - 0(Alert) 1b. Level of Consciousness (LOC) (Month \\T\\ Age) - 0(Both) 1c. LOC Commands (Open \\T\\ Closes Eyes/Child Nutrition Director) - 0(Both) 2. Best Gaze (Lateral Gaze Paresis) - 0(Normal) 3. Visual Field Loss - 0(No visual loss) 4. Facial Palsy - 1(Minor Paralysis) 5a. Left Arm: Motor (10-second hold) - 1(Drift) 5b. Right Arm: Motor (10-second hold) - 0(No drift) 6a. Left Leg: Motor (5-second hold - always test supine) - 0(No drift) 6b. Right Leg: Motor (5-second hold - always test supine) - 0(No drift) 7. Limb Ataxia (finger/nose \\T\\ heel/hunt - test with eyes open) - 0(Absent) 8. Sensory Loss (pinprick arms/legs/face) - 0(Normal) 9. Best Language: Aphasia (description/naming/reading) - 0(No aphasia) 10. Dysarthria (speech clarity - read or repeat words) - 0(Normal) 11. Extinction and Inattention (visual/tactile/auditory/spatial/personal) - 0(No abnormality) Initials: ll1 NIH Stroke Scale - NIH Stroke Score Date: 03/10/2022 Time: 14:15 Total Score = 1 1a. Level of Consciousness (LOC) - 0(Alert) 1b. Level of Consciousness (LOC) (Month \\T\\ Age) - 0(Both) 1c. LOC Commands (Open \\T\\ Closes Eyes/Child Nutrition Director) - 0(Both) 2. Best Gaze (Lateral Gaze Paresis) - 0(Normal) 3. Visual Field Loss - 0(No visual loss) 4. Facial Palsy - 1(Minor Paralysis) 5a. Left Arm: Motor (10-second hold) - 0(No drift) 5b. Right Arm: Motor (10-second hold) - 0(No drift) 6a. Left Leg: Motor (5-second hold - always test supine) - 0(No drift) 6b. Right Leg: Motor (5-second hold - always test supine) - 0(No drift) 7. Limb Ataxia (finger/nose \\T\\ heel/hunt - test with eyes open) - 0(Absent) 8. Sensory Loss (pinprick arms/legs/face) - 0(Normal) 9. Best Language: Aphasia (description/naming/reading) - 0(No aphasia) 10. Dysarthria (speech clarity - read or repeat words) - 0(Normal) 11. Extinction and Inattention (visual/tactile/auditory/spatial/personal) - 0(No abnormality) Initials: ll1 NIH Stroke Scale - NIH Stroke Score Date: 03/10/2022 Time: 14:30 Total Score = 1 1a. Level of Consciousness (LOC) - 0(Alert) 1b. Level of Consciousness (LOC) (Month \\T\\ Age) - 0(Both) 1c. LOC Commands (Open \\T\\ Closes Eyes/Child Nutrition Director) - 0(Both) 2. Best Gaze (Lateral Gaze Paresis) - 0(Normal) 3. Visual Field Loss - 0(No visual loss) 4. Facial Palsy - 1(Minor Paralysis) 5a. Left Arm: Motor (10-second hold) - 0(No drift) 5b. Right Arm: Motor (10-second hold) - 0(No drift) 6a. Left Leg: Motor (5-second hold - always test supine) - 0(No drift) 6b. Right Leg: Motor (5-second hold - always test supine) - 0(No drift) 7. Limb Ataxia (finger/nose \\T\\ heel/hunt - test with eyes open) - 0(Absent) 8. Sensory Loss (pinprick arms/legs/face) - 0(Normal) 9. Best Language: Aphasia (description/naming/reading) - 0(No aphasia) 10. Dysarthria (speech clarity - read or repeat words) - 0(Normal) 11. Extinction and Inattention (visual/tactile/auditory/spatial/personal) - 0(No abnormality) Initials: [facility] NIH Stroke Scale - NIH Stroke Score Date: 03/10/2022 Time: 14:45 Total Score = 1 1a. Level of Consciousness (LOC) - 0(Alert) 1b. Level of Consciousness (LOC) (Month \\T\\ Age) - 0(Both) 1c. LOC Commands (Open \\T\\ Closes Eyes/Child Nutrition Director) - 0(Both) 2. Best Gaze (Lateral Gaze Paresis) - 0(Normal) 3. Visual Field Loss - 0(No visual loss) 4. Facial Palsy - 1(Minor Paralysis) 5a. Left Arm: Motor (10-second hold) - 0(No drift) 5b. Right Arm: Motor (10-second hold) - 0(No drift) 6a. Left Leg: Motor (5-second hold - always test supine) - 0(No drift) 6b. Right Leg: Motor (5-second hold - always test supine) - 0(No drift) 7. Limb Ataxia (finger/nose \\T\\ heel/hunt - test with eyes open) - 0(Absent) 8. Sensory Loss (pinprick arms/legs/face) - 0(Normal) 9. Best Language: Aphasia (description/naming/reading) - 0(No aphasia) 10. Dysarthria (speech clarity - read or repeat words) - 0(Normal) 11. Extinction and Inattention (visual/tactile/auditory/spatial/personal) - 0(No abnormality) Initials: [facility] NIH Stroke Scale - NIH Stroke Score Date: 03/10/2022 Time: 15:00 Total Score = 1 1a. Level of Consciousness (LOC) - 0(Alert) 1b. Level of Consciousness (LOC) (Month \\T\\ Age) - 0(Both) 1c. LOC Commands (Open \\T\\ Closes Eyes/Child Nutrition Director) - 0(Both) 2. Best Gaze (Lateral Gaze Paresis) - 0(Normal) 3. Visual Field Loss - 0(No visual loss) 4. Facial Palsy - 1(Minor Paralysis) 5a. Left Arm: Motor (10-second hold) - 0(No drift) 5b. Right Arm: Motor (10-second hold) - 0(No drift) 6a. Left Leg: Motor (5-second hold - always test supine) - 0(No drift) 6b. Right Leg: Motor (5-second hold - always test supine) - 0(No drift) 7. Limb Ataxia (finger/nose \\T\\ heel/hunt - test with eyes open) - 0(Absent) 8. Sensory Loss (pinprick arms/legs/face) - 0(Normal) 9. Best Language: Aphasia (description/naming/reading) - 0(No aphasia) 10. Dysarthria (speech clarity - read or repeat words) - 0(Normal) 11. Extinction and Inattention (visual/tactile/auditory/spatial/personal) - 0(No abnormality) Initials: ll1 NIH Stroke Scale - NIH Stroke Score Date: 03/10/2022 Time: 15:15 Total Score = 1 1a. Level of Consciousness (LOC) - 0(Alert) 1b. Level of Consciousness (LOC) (Month \\T\\ Age) - 0(Both) 1c. LOC Commands (Open \\T\\ Closes Eyes/Child Nutrition Director) - 0(Both) 2. Best Gaze (Lateral Gaze Paresis) - 0(Normal) 3. Visual Field Loss - 0(No visual loss) 4. Facial Palsy - 1(Minor Paralysis) 5a. Left Arm: Motor (10-second hold) - 0(No drift) 5b. Right Arm: Motor (10-second hold) - 0(No drift) 6a. Left Leg: Motor (5-second hold - always test supine) - 0(No drift) 6b. Right Leg: Motor (5-second hold - always test supine) - 0(No drift) 7. Limb Ataxia (finger/nose \\T\\ heel/hunt - test with eyes open) - 0(Absent) 8. Sensory Loss (pinprick arms/legs/face) - 0(Normal) 9. Best Language: Aphasia (description/naming/reading) - 0(No aphasia) 10. Dysarthria (speech clarity - read or repeat words) - 0(Normal) 11. Extinction and Inattention (visual/tactile/auditory/spatial/personal) - 0(No abnormality) Initials: ll1 NIH Stroke Scale - NIH Stroke Score Date: 03/10/2022 Time: 15:30 Total Score = 1 1a. Level of Consciousness (LOC) - 0(Alert) 1b. Level of Consciousness (LOC) (Month \\T\\ Age) - 0(Both) 1c. LOC Commands (Open \\T\\ Closes Eyes/Child Nutrition Director) - 0(Both) 2. Best Gaze (Lateral Gaze Paresis) - 0(Normal) 3. Visual Field Loss - 0(No visual loss) 4. Facial Palsy - 1(Minor Paralysis) 5a. Left Arm: Motor (10-second hold) - 0(No drift) 5b. Right Arm: Motor (10-second hold) - 0(No drift) 6a. Left Leg: Motor (5-second hold - always test supine) - 0(No drift) 6b. Right Leg: Motor (5-second hold - always test supine) - 0(No drift) 7. Limb Ataxia (finger/nose \\T\\ heel/hunt - test with eyes open) - 0(Absent) 8. Sensory Loss (pinprick arms/legs/face) - 0(Normal) 9. Best Language: Aphasia (description/naming/reading) - 0(No aphasia) 10. Dysarthria (speech clarity - read or repeat words) - 0(Normal) 11. Extinction and Inattention (visual/tactile/auditory/spatial/personal) - 0(No abnormality) Initials: ll1 NIH Stroke Scale - NIH Stroke Score Date: 03/10/2022 Time: 16:00 Total Score = 1 1a. Level of Consciousness (LOC) - 0(Alert) 1b. Level of Consciousness (LOC) (Month \\T\\ Age) - 0(Both) 1c. LOC Commands (Open \\T\\ Closes Eyes/Child Nutrition Director) - 0(Both) 2. Best Gaze (Lateral Gaze Paresis) - 0(Normal) 3. Visual Field Loss - 0(No visual loss) 4. Facial Palsy - 1(Minor Paralysis) 5a. Left Arm: Motor (10-second hold) - 0(No drift) 5b. Right Arm: Motor (10-second hold) - 0(No drift) 6a. Left Leg: Motor (5-second hold - always test supine) - 0(No drift) 6b. Right Leg: Motor (5-second hold - always test supine) - 0(No drift) 7. Limb Ataxia (finger/nose \\T\\ heel/hunt - test with eyes open) - 0(Absent) 8. Sensory Loss (pinprick arms/legs/face) - 0(Normal) 9. Best Language: Aphasia (description/naming/reading) - 0(No aphasia) 10. Dysarthria (speech clarity - read or repeat words) - 0(Normal) 11. Extinction and Inattention (visual/tactile/auditory/spatial/personal) - 0(No abnormality) Initials: ll1 NIH Stroke Scale - NIH Stroke Score Date: 03/10/2022 Time: 16:30 Total Score = 1 1a. Level of Consciousness (LOC) - 0(Alert) 1b. Level of Consciousness (LOC) (Month \\T\\ Age) - 0(Both) 1c. LOC Commands (Open \\T\\ Closes Eyes/Child Nutrition Director) - 0(Both) 2. Best Gaze (Lateral Gaze Paresis) - 0(Normal) 3. Visual Field Loss - 0(No visual loss) 4. Facial Palsy - 1(Minor Paralysis) 5a. Left Arm: Motor (10-second hold) - 0(No drift) 5b. Right Arm: Motor (10-second hold) - 0(No drift) 6a. Left Leg: Motor (5-second hold - always test supine) - 0(No drift) 6b. Right Leg: Motor (5-second hold - always test supine) - 0(No drift) 7. Limb Ataxia (finger/nose \\T\\ heel/hunt - test with eyes open) - 0(Absent) 8. Sensory Loss (pinprick arms/legs/face) - 0(Normal) 9. Best Language: Aphasia (description/naming/reading) - 0(No aphasia) 10. Dysarthria (speech clarity - read or repeat words) - 0(Normal) 11. Extinction and Inattention (visual/tactile/auditory/spatial/personal) - 0(No abnormality) Initials: ll1 Signatures: Dispatcher [employer] EDMS Girish Begum MD MD cha Mickail, Joel, PA PA jmm Leal, Jahala RN RN jl7 Yael Duran RN RN ll1 Yael Duran RN ll1 Corrections: (The following items were deleted from the chart) 13:25 13:02 Accucheck ordered. jodi 1 14:54 14:35 NIHSS Score: 6 [facility] 14:57 14:34 The symptoms are alleviated by nothing. The symptoms are aggravated by [facility] nothing. [facility] 14:57 14:52 Constitutional: Negative for fever, chills, and weight loss, [facility] Cardiovascular: Negative for chest pain, palpitations, and edema, Respiratory: Negative for shortness of breath, cough, wheezing, and pleuritic chest pain, jodi 14 14:52 All other systems are negative, jdoi zapata 14 14:52 Neuro: Positive for syncope, weakness, jodi zapata 16: 15:03 Neurology [facility] ll1
[2022-03-10] MEDS ORDERED: FOLIC ACID 5 MG/ML VIAL ONE (15:04)
[2022-03-10 16:07] LABS: Urine Blood Trace-intact (Negative); Urine Glucose Negative (Negative); Urine Protein Trace (Negative); Urine Specific Gravity >=1.030 (1.005-1.030); Urine pH 5.5 (5.0-7.0)
[2022-03-10 16:27] LABS: Barbiturates NEGATIVE (NEGATIVE); Benzodiazepines NEGATIVE (NEGATIVE); Cocaine NEGATIVE (NEGATIVE); METHAMPHETAM NEGATIVE (NEGATIVE); Methadone NEGATIVE (NEGATIVE); Opiates NEGATIVE (NEGATIVE); Phencyclidine NEGATIVE (NEGATIVE); THC Cannibis NEGATIVE (NEGATIVE)
[2022-03-10 17:36] VITALS: TEMP 98.1; O2SAT 99
[2022-03-10 17:40] VITALS: BP 165/81
--- NOTE | 2022-03-12 07:45 | EKG ---
Test Date: 2022-03-10 Test Time: 13:46:14 Nuclear Equipment Design Engineer: LESA MEASUREMENT RESULTS: Intervals: Rate: 65 CA: 188 QRSD: 106 QT: 394 QTc: 409 [place]: P: 80 CA: 188 QRS: 84 T: 70 INTERPRETIVE STATEMENTS: Normal sinus rhythm Normal ECG No previous ECG available for comparison Electronically Signed On 03-12-22 07:37:51 CDT by Patrick Torres
== END 2022-03-10 16:57 | disposition short-term general hospital (02) ==
LOC: ER 12:42
DX: I63.9 Cerebral infarction, unspecified (principal); R29.706 NIHSS score 6; F17.220 Nicotine dependence, chewing tobacco, uncomplicated; Z20.822 Contact with and (suspected) exposure to COVID-19
CPT/HCPCS: 36415; 70450; 70496; 70498; 71045; 80048; 80076; 80307; 81003; 82550; 82553; 83690; 83735; 85025; 85610; 85730; 92977; 93005; 96365; 96366; 99291; 99292; J3101; Q9967; U0003